=== PATIENT | male | born 1960 | race Two or more races ===

== ENCOUNTER 2017-11-02 11:21 | Emergency (ER) | payer OTHER ==
[2017-11-02 11:54] LABS: BILIRUBIN,URINE NEGATIVE (NEG); CLARITY,URINE CLEAR; COLOR,URINE YELLOW; GLUCOSE,URINE NEGATIVE (NEG); NITRITE,URINE NEGATIVE (NEG); PROTEIN,URINE NEGATIVE (NEG-TRACE)
[2017-11-02 12:05] LABS: BACTERIA,URINE 0 /HPF (0-FEW); RBC,URINE >40 /HPF (0-2); SQUAMOUS EPITHELIAL CELL,UR FEW /LPF; WBC,URINE 0 /HPF (0-4)
== END 2017-11-02 13:47 | disposition home or self-care (01) ==
LOC: ER 11:21
DX: R31.9 Hematuria, unspecified (principal); F12.10 Cannabis abuse, uncomplicated; F15.10 Other stimulant abuse, uncomplicated; F17.200 Nicotine dependence, unspecified, uncomplicated
CPT/HCPCS: 76857; 81001; 87086; 99285-25